=== PATIENT | female | born 1965 | race African-American/Black ===

== ENCOUNTER 2022-08-31 14:12 | Inpatient (IN) | payer MEDICAID ==
[~2022-08-31] VITALS: Ht 165.1 cm; Wt 113.9 kg
[~2022-08-31 14:12] MED LIST: ASPI81TA47 PO; HYDR25TA PO; HYDROCHLOROTHIAZIDE; LEVO500T2 PO; LISI20TA31 PO; MONT10TA21 PO; NORVASC; P20 PO
[2022-08-31 18:00] LABS: BASOPHILS % 0.5 % (0.0-2.0); EOSINOPHILS % 1.5 % (0.0-5.0); HEMATOCRIT. 45.4 % (36.0-48.0); HEMOGLOBIN. 15.5 g/dL (12.0-16.0); LYMPHOCYTES % 13.7 % (20.0-50.0); MEAN CORPUSCULAR HEMOGLOBIN 30.9 pg (28.0-32.0); MEAN CORPUSCULAR VOLUME 90.6 fL (81.0-99.0); MEAN PLATELET VOLUME 8.2 fl (7.4-10.4); MONOCYTES % 7.9 % (2.0-8.0); NEUTROPHILS % 76.4 % (40.0-76.0); PLATELET 403 x1000/uL (130-400); RED BLOOD CELL COUNT 5.01 mill/uL (4.2-5.4); RED CELL DISTRIBUTION WIDTH 13.5 % (11.6-14.6)
[2022-08-31 18:04] LABS: CHLORIDE 103 mEq/L (98-107)
[2022-08-31] MEDS ORDERED: ACETAMINOPHEN 325MG TABLET PO ONE (18:30)
[2022-08-31] MEDS ORDERED: IBUPROFEN 800MG TABLET PO ONE (18:30)
[2022-08-31] MEDS ORDERED: ASPIRIN 325MG EC TABLET PO ONE (18:45)
[2022-09-01 04:58] VITALS: BP 127/96
[2022-09-01 05:00] VITALS: BP 127/96
[2022-09-01] MEDS ORDERED: HYDROCODONE/ACETAMINOPHEN 5/325MG TABLET PO PRN (06:00)
[2022-09-01 08:00] VITALS: BP 163/97
[2022-09-01] MEDS ORDERED: NALOXONE HCL 0.4MG/ML VIAL IV PRN (09:30)
[2022-09-01] MEDS: ASPIRIN 81MG TABLET PO SCH (10:03)
[2022-09-01] MEDS: ENOXAPARIN 30MG/0.3ML SYR SUBCUT SCH ×2 (10:03→20:29)
[2022-09-01 12:00] VITALS: BP 140/72
[2022-09-01 12:17] LABS: BASOPHILS % 0.5 % (0.0-2.0); EOSINOPHILS % 4.4 % (0.0-5.0); HEMATOCRIT. 38.7 % (36.0-48.0); HEMOGLOBIN. 12.9 g/dL (12.0-16.0); LYMPHOCYTES % 37.3 % (20.0-50.0); MEAN CORPUSCULAR HEMOGLOBIN 29.5 pg (28.0-32.0); MEAN CORPUSCULAR VOLUME 88.3 fL (81.0-99.0); MEAN PLATELET VOLUME 9.1 fl (7.4-10.4); MONOCYTES % 6.9 % (2.0-8.0); NEUTROPHILS % 50.9 % (40.0-76.0); PLATELET 270 x1000/uL (130-400); RED BLOOD CELL COUNT 4.38 mill/uL (4.2-5.4); RED CELL DISTRIBUTION WIDTH 13.3 % (11.6-14.6)
[2022-09-01 13:04] LABS: CHLORIDE 106 mEq/L (98-107)
[2022-09-01] MEDS ORDERED: IPRATROPIUM/ALBUTEROL 0.5-3(2.5)MG/3ML NEB HHN PRN (13:30)
[2022-09-01 14:35] LABS: HEPATITIS B SURFACE ANTIGEN NEGATIVE
[2022-09-01 16:00] VITALS: BP 149/86
[2022-09-01 20:00] VITALS: BP 124/59
[2022-09-01] MEDS: AMLODIPINE 5MG TABLET PO SCH (20:28)
[2022-09-02] VITALS: BP 162/85
[2022-09-02 04:00] VITALS: BP 144/92
[2022-09-02 06:27] LABS: CHLORIDE 107 mEq/L (98-107)
[2022-09-02 07:17] LABS: BASOPHILS % 0.4 % (0.0-2.0); EOSINOPHILS % 4.9 % (0.0-5.0); HEMATOCRIT. 39.2 % (36.0-48.0); HEMOGLOBIN. 13.2 g/dL (12.0-16.0); LYMPHOCYTES % 37.5 % (20.0-50.0); MEAN CORPUSCULAR HEMOGLOBIN 29.7 pg (28.0-32.0); MEAN CORPUSCULAR VOLUME 88.5 fL (81.0-99.0); MEAN PLATELET VOLUME 9.1 fl (7.4-10.4); MONOCYTES % 6.9 % (2.0-8.0); NEUTROPHILS % 50.3 % (40.0-76.0); PLATELET 257 x1000/uL (130-400); RED BLOOD CELL COUNT 4.43 mill/uL (4.2-5.4); RED CELL DISTRIBUTION WIDTH 13.4 % (11.6-14.6)
[2022-09-02 08:00] VITALS: BP 163/98
[2022-09-02] MEDS: ASPIRIN 81MG TABLET PO SCH (08:31)
[2022-09-02] MEDS: ENOXAPARIN 30MG/0.3ML SYR SUBCUT SCH (08:31)
[2022-09-02] MEDS: AMLODIPINE 5MG TABLET PO SCH (08:34)
[2022-09-02] MEDS ORDERED: LISINOPRIL 10MG TABLET PO SCH (10:00)
[2022-09-02 12:00] VITALS: BP 102/53
[2022-09-02] MEDS ORDERED: CLOPIDOGREL 75MG TABLET PO SCH (12:30)
[2022-09-02] MEDS ORDERED: HYDR25TA PO (13:24)
[2022-09-02] MEDS ORDERED: LISI20TA31 PO (13:24)
[2022-09-02] MEDS ORDERED: ASPI81TA47 PO (13:24)
[2022-09-02] MEDS ORDERED: LIP40 PO (13:24)
[2022-09-02] MEDS ORDERED: CLOP75TA15 PO (13:24)
[2022-09-02] MEDS ORDERED: AMLO5TAB88 PO (13:24)
[2022-09-02 13:31] VITALS: BP 160/98
[2022-09-02] MEDS ORDERED: ATORVASTATIN CALCIUM 40MG TABLET PO SCH (21:00)
[2022-09-02] MEDS ORDERED: ATORVASTATIN CALCIUM 20MG TABLET PO SCH (21:00)
== END 2022-09-02 13:48 | disposition home or self-care (01) | DRG 48 ==
LOC: ER 14:12 → EDBEDREQ 19:04 → EDBEDREQTM 19:04 → MICUSO 09-01 04:31 → 3WST 09-01 04:41
PROVIDERS: ADMIT Internal Medicine; ATTEND Internal Medicine
DX: G90.8 Other disorders of autonomic nervous system (principal); I50.31 Acute diastolic (congestive) heart failure; H35.033 Hypertensive retinopathy, bilateral; E11.9 Type 2 diabetes mellitus without complications; G83.14 Monoplegia of lower limb affecting left nondominant side; J44.9 Chronic obstructive pulmonary disease, unspecified; E66.01 Morbid (severe) obesity due to excess calories; R26.81 Unsteadiness on feet; Z79.82 Long term (current) use of aspirin; Z86.73 Personal history of transient ischemic attack (TIA), and cerebral infarction without residual deficits; Z88.0 Allergy status to penicillin; Z79.899 Other long term (current) drug therapy; Z68.41 Body mass index [BMI] 40.0-44.9, adult; I11.0 Hypertensive heart disease with heart failure
CPT/HCPCS: 36415; 70551; 71045; 80048; 80053; 80061; 82962; 83880; 84484; 85025; 86803; 87340; 93005; 93306; 99285; J1650